=== PATIENT | male | born 1985 | race Caucasian/White ===

== ENCOUNTER 2018-01-16 16:14 | Emergency (ER) | payer SELFPAY ==
[~2018-01-16] VITALS: Ht 177.8 cm; Wt 90.0 kg
[2018-01-16] MEDS ORDERED: ONDANSETRON HCL 4 MG/2 ML VIAL IV PUSH ONE (16:30)
[2018-01-16] MEDS ORDERED: MORPHINE SULFATE 2 MG/ML INJ IV PUSH ONE (16:30)
--- NOTE | 2018-01-16 16:37 | PD ---
HPI Chief Complaint: right testicular pain Time Seen by Provider: 16:23 Travel History International Travel<30 days: No Contact w/Intl Traveler<30days: No Traveled to known affect area: No History of Present Illness HPI The patient is a 32-year-old male was initially evaluated in [place], [place]. The patient complained of 3 days of right testicular pain and abdominal pain. The abdominal pain is intermittent, the testicular pain is consistent for the last 3 days. He does note fluctuating swelling of the right testicular area without any dysuria, frequency, or urgency. He does have a history of chlamydia, however, states he took medications for chlamydia. He denies any trauma to the scrotum. He denies any nausea, vomiting, diarrhea, fever, chills, or sweats. Symptoms are moderate. There are no current alleviating or exacerbating factors. He denies any known history of epididymitis or orchitis. [facility] Past Medical History Diminished Hearing: No Past Surgical History Eye Surgery: Yes (LEFT EYE) Social History Alcohol Use: No Tobacco Use: No Substance Use: Yes (MARIJUANA DAILY) Allergies-Medications (Allergen,Severity, Reaction): Coded Allergies: No Known Allergies (Unverified , 01/16/18) Review of Systems Except as stated in HPI: all other systems reviewed are Neg General / Constitutional: No: Fever Cardiovascular: No: Chest Pain or Discomfort Respiratory: No: Shortness of Breath Gastrointestinal: Positive: Abdominal Pain, No: Nausea, Vomiting Genitourinary: Positive: Pelvic Pain, Other (as noted in the history of present illness), No: Urgency, Frequency, Dysuria, Discharge Skin: No Rash Physical Exam Narrative GENERAL: Awake, alert, pleasant 32-year-old male who appears his stated age and is in no acute respiratory distress. SKIN: Focused skin assessment warm/dry. HEAD: Atraumatic. Normocephalic. EYES: No injection or drainage. ENT: No nasal bleeding or discharge. Mucous membranes pink and moist. NECK: Trachea midline. No JVD. CARDIOVASCULAR: Regular rate and rhythm. No murmur appreciated. RESPIRATORY: No accessory muscle use. Clear to auscultation. Breath sounds equal bilaterally. GASTROINTESTINAL: Abdomen soft, non-tender, nondistended. No rebound tenderness. Back: No CVA tenderness. Genitourinary: Circumcised phallus. No tenderness over the left scrotum and left testicle. Patient has mild tenderness of the right epididymis and right testicle. MUSCULOSKELETAL: No obvious deformities. No clubbing. No cyanosis. No edema. NEUROLOGICAL: Awake and alert. No obvious cranial nerve deficits. Motor grossly within normal limits. Normal speech. PSYCHIATRIC: Appropriate mood and affect; insight and judgment normal. Data Data Last Documented VS Vital Signs Date Time Temp Pulse Resp B/P (MAP) Pulse Ox O2 Delivery O2 Flow Rate FiO2 01/16/18 17:50 16 01/16/18 16:56 98.9 82 126/77 (93) 100 Orders Orders Us Testicles W Doppler (01/16/18 ) Morphine Inj (Morphine Inj) (01/16/18 16:30) Ondansetron Inj (Zofran Inj) (01/16/18 16:30) Ed Discharge Order (01/16/18 18:44) [facility] Medical Decision Making Medical Screen Exam Complete: Yes Emergency Medical Condition: Yes Medical Record Reviewed: Yes Interpretation(s) Ultrasound reveals small right sided hydrocele Differential Diagnosis Differential diagnoses includes epididymitis, orchitis, section transmitted infection, nephrolithiasis, UTI, testicular torsion. Narrative Course The patient was initially evaluated in [place] where he had laboratory evaluation including CBC, CMP, UA, and CT the abdomen and pelvis. The patient was referred to [facility] for ultrasound. Therefore, ultrasound with Doppler of the testicles was ordered. The patient was administer morphine and Zofran for his discomfort. Ultrasound reveals small right sided hydrocele. No evidence of epididymitis or torsion. No evidence of orchitis. The patient had a negative CT except for possible large right testicle, however, ultrasound was unremarkable. Advised to follow-up with urology if symptoms persist. Diagnosis Primary Impression: Right hydrocele Additional Impression: Groin pain Qualified Codes: R10.31 - Right lower quadrant pain Patient Instructions: General Instructions Additional Instructions: Please provide a patient a copy of his CT results, ultrasound results, and lab results at discharge. Pain medication as directed. Follow-up with urology. Med/Other Pt SpecificInfo: Prescription(s) given Scripts Ibuprofen (Ibuprofen) 600 Mg Tab 600 MG PO Q6H Y for Pain/Inflammation, #20 TAB 0 Refills Prov: Surjit Padilla MD 01/16/18 Hydrocodone-Acetaminophen ([place]) 5 Mg-325 Mg Tab 1 TAB PO Q6H Y for PAIN, #12 TAB 0 Refills Prov: Surjit Padilla MD 01/16/18 Disposition: 01 DISCHARGE HOME Condition: Stable Surjit Padilla MD Jan 16, 2018 16:37
[2018-01-16 16:56] VITALS: BP 126/77; PULSE 82; RESP 16; TEMP 98.9; O2SAT 100
[2018-01-16 17:50] VITALS: RESP 16
--- NOTE | 2018-01-16 18:00 | RADRPT ---
EXAM DATE/TIME: 01/16/2018 17:05 [facility] COMPARISON: No previous studies available for comparison. INDICATIONS : Testicular pain. MEDICAL HISTORY : Substance use. SURGICAL HISTORY : Left eye surgery. ENCOUNTER: Initial ACUITY: 3 days PAIN SCORE: 6/10 LOCATION: Bilateral testicles. MEASUREMENTS: RIGHT TESTICLE: 3.4 x 3.3 x 2.3cm LEFT TESTICLE: 3.8 x 3.0 x 2.2cm FINDINGS: RIGHT TESTICLE: Homogeneous echotexture without intra or extratesticular mass. Blood flow is symmetric and within no rmal limits. No varicocele. There is a small hydrocele. Epididymis is within normal limits. LEFT TESTICLE: Homogeneous echotexture without intra or extratesticular mass. Blood flow is symmetric and within no rmal limits. No hydrocele or varicocele. Epididymis is within normal limits. SCROTUM: Within normal limits. CONCLUSION: 1. Small right-sided hydrocele. 2. Otherwise, unremarkable testicular examination. No focal testicular mass or asymmetrical vasculari ty. Jorge Luis Martins MD on January 16, 2018 at 17:56 Board Certified Radiologist. This report was verified electronically.
[2018-01-16] MEDS ORDERED: IBUP-232 PO (18:47)
[2018-01-16] MEDS ORDERED: NORC5TAB PO (18:47)
== END 2018-01-16 19:10 | disposition home or self-care (01) ==
LOC: NEPE 16:14
DX: N43.3 Hydrocele, unspecified (principal); R10.31 Right lower quadrant pain; F12.90 Cannabis use, unspecified, uncomplicated
CPT/HCPCS: 76870; 93975; 96374; 96375; 99281; J2270; J2405